=== PATIENT | female | born 1965 | race Caucasian/White ===

== ENCOUNTER 2021-07-03 11:50 | Emergency (ER) | payer MEDICAID ==
[~2021-07-03] VITALS: Ht 154.9 cm; Wt 72.6 kg
--- NOTE | 2021-07-03 12:08 | NUR ---
PT KAREN C/O COUGH X7DAYS AND SOB STARTED TODAY TESTED POSITIVE 11DAYS AGO. PT A/OX3. TOLERATING O2 5LPM VIA N/C AT 95%. CONNECTED PT TO MONITOR AND POX. SAFETY AND CONTACT DROPLET ISO PRECAUTIONS IN PLACE.
--- NOTE | 2021-07-03 12:52 | NUR ---
PT SEEN BY SKOOG PATCHING MACHINE OPERATOR
[2021-07-03] MEDS ORDERED: DEXA6TAB PO (13:07)
[2021-07-03] MEDS ORDERED: ACET-868 PO (13:07)
--- NOTE | 2021-07-03 13:25 | NUR ---
LAB AT BEDSIDE
[2021-07-03 13:34] LABS: BASOPHILS # (AUTO) 0.1 K/uL (0.0-0.2); BASOPHILS % (AUTO) 1.4 % (0.0-2.0); HEMATOCRIT 38 % (33-45); HEMOGLOBIN 12.6 g/dL (11.5-14.8); LYMPHOCYTES # (AUTO) 0.6 K/uL (0.8-4.8); LYMPHOCYTES % (AUTO) 6.5 % (20.0-44.0); MEAN CORPUSCULAR HGB CONC 33 g/dl (31.0-36.0); MEAN CORPUSCULAR VOLUME 84 fL (82-100); MONOCYTES # (AUTO) 0.3 K/uL (0.1-1.30); MONOCYTES % (AUTO) 3.4 % (2.0-12.0); NEUTROPHILS # (AUTO) 7.6 K/uL (1.8-8.9); NEUTROPHILS % (AUTO) 88.7 % (43.0-81.0); PLATELET COUNT (AUTO) 297 K/uL (150-450); RED BLOOD CELL COUNT(AUTO) 4.56 MIL/uL (4.0-5.2); WHITE BLOOD COUNT (AUTO) 8.5 K/uL (4.3-11.0)
--- NOTE | 2021-07-03 13:35 | NUR ---
RAC #20G S/L PATENT AND INTACT. BLOOD COLLECTED AND GIVEN TO LAB COVID PCR AND STREP SWAB COLLECTED AND SENT TO LAB
--- NOTE | 2021-07-03 13:36 | NUR ---
MRSA SWAB COLLECTED AND GIVEN TO LAB
[2021-07-03 13:44] LABS: CALCIUM, SERUM 8.7 mg/dL (8.5-10.1); CARBON DIOXIDE 23 mmol/L (21-32); CHLORIDE 100 mmol/L (98-107); CREATININE 0.7 mg/dL (0.6-1.3); GLUCOSE 131 mg/dL (74-106); POTASSIUM 3.4 mmol/L (3.5-5.1); SODIUM SERUM 137 mmol/L (136-145); UREA NITROGEN, BLOOD 13 mg/dL (7-18)
--- NOTE | 2021-07-03 13:56 | NUR ---
LACTIC ACID 3.2 - JOSE ENRIQUE FORD AWARE
[2021-07-03 13:58] LABS: ALANINE AMINOTRANSFERASE 58 U/L (12-78); ALKALINE PHOSPHATASE 48 U/L (46-116); ASPARTATE AMINOTRANSFERASE 47 U/L (15-37); BILIRUBIN,TOTAL 0.3 mg/dL (0.2-1.0); TOTAL PROTEIN, SERUM 7.8 g/dL (6.4-8.2)
[2021-07-03] MEDS ORDERED: IV NS 0.9% 1,000 ML BAG IV ONE (14:00)
[2021-07-03 14:09] LABS: D-DIMER 0.59 mg/L(FEU (0.17-0.50)
--- NOTE | 2021-07-03 14:12 | NUR ---
URINE COLLECTED AND SENT TO LAB
[2021-07-03 14:22] LABS: CREATINE KINASE, TOTAL 52 U/L (26-192); FERRITIN 400 ng/mL (8-388)
[2021-07-03 14:24] LABS: BILIRUBIN,URINE Negative (NEGATIVE); COLOR,URINE YELLOW (YELLOW); LEUKOCYTE ESTERASE ,URINE Negative (NEGATIVE); NITRITE, URINE Negative (NEGATIVE); PH,URINE 7.5 (5.0-8.0); PROTEIN,URINE 30 mg/dl (NEGATIVE); UGLUCOSE Negative (NEGATIVE); UROBILINOGEN,URINE 0.2 EU/dL (0.2)
[2021-07-03 14:32] LABS: C-REACTIVE PROTEIN 5.2 mg/dL (0.0-0.9)
[2021-07-03 14:40] LABS: BACTERIA,URINE Rare /HPF (None Seen); SQUAMOUS EPITHELIAL CELL,UR Few /HPF (None Seen); WBC,URINE NONE SEEN /HPF (0-3)
[2021-07-03] MEDS ORDERED: CEFTRIAXONE 1 G in IV D5W 50 ML IV ONE (15:00)
[2021-07-03] MEDS ORDERED: AZITHROMYCIN 500 MG in IV D5W 250 ML IV ONE (15:00)
--- NOTE | 2021-07-03 16:21 | NUR ---
BIB DELATORRE CALLED PT ACCEPTED TO [facility] ROJAS NO BED YET. FAXING CLINICALS TO [phone] TEL [phone]
[2021-07-03 16:28] LABS: BILIRUBIN,DIRECT 0.1 mg/dL (0.0-0.2)
--- NOTE | 2021-07-03 16:56 | NUR ---
LAB CALLED LACTIC ACID 2.0
--- NOTE | 2021-07-03 19:48 | NUR ---
PER LAB, COVID POSITIVE
[2021-07-03 22:06] VITALS: BP 126/62
--- NOTE | 2021-07-03 22:15 | NUR ---
pT IS GOING TO [facility] UNDER THE CARE OF DR. BILLS. PT IS GOING TO ROOM 1. CALL [phone] FOR NURSE TO NURSE REPORT. AM[employer]ERVE STAVE MACHINE TENDER AT [phone]
--- NOTE | 2021-07-03 23:00 | NUR ---
REPORT GIVEN TO MARYLOU HINES FROM [facility].
--- NOTE | 2021-07-03 23:17 | NUR ---
REPORT GIVEN TO EMT [phone] FOR REPORT; PT BEING TRANSFERRED TO [facility]. VSS
== END 2021-07-03 23:32 | disposition short-term general hospital (02) ==
LOC: ER 11:55
DX: A41.89 Other specified sepsis (principal); U07.1 COVID-19; J12.82 Pneumonia due to coronavirus disease 2019; R65.20 Severe sepsis without septic shock; J96.01 Acute respiratory failure with hypoxia; R79.1 Abnormal coagulation profile; R79.0 Abnormal level of blood mineral
CPT/HCPCS: 36415; 71045; 80053; 81001; 82248; 82550; 82728; 83605 ×2; 83615; 83880; 84145; 84484; 85025; 85378; 85730; 86140; 87040; 87077; 87081; 87086; 87426; 87804; 96361; 96365; 96367; 99291; C9803 ×2; J0456; J0696; J7030; J7040; J7060; U0003